=== PATIENT | male | born 1965 | race Caucasian/White ===

== ENCOUNTER 2019-02-26 23:26 | Inpatient (IN) ==
[2019-02-26] MEDS ORDERED: Ipratropium/Albuterol Neb 3 ML IH ONE (23:35)
[2019-02-26] MEDS ORDERED: 0.9 % Sodium Chloride 1,000 ML IVC SCH (23:45)
[2019-02-27 00:13] LABS: Basophils % 0.4 %; Eosinophils # 0.1 K/mcL (0.0-0.6); Eosinophils % 0.8 %; Hematocrit 50.1 % (37.5-50.1); Hemoglobin 17.7 g/dL (12.9-16.9); Immature Granulocytes % 0.4 % (0-4); Lymphocytes # 2.9 K/mcL (0.6-4.6); Lymphocytes % 26.2 %; Mean Corpuscular HGB Conc 35.3 g/dL (31.6-35.5); Mean Corpuscular Hemoglobin 32.8 pg (28.0-33.3); Mean Corpuscular Volume 92.8 fL (83.0-100.0); Mean Platelet Volume 9.6 fL (9.4-12.4); Monocytes # 0.9 K/mcL (0.0-1.3); Monocytes % 7.7 %; Neutrophils # 7.1 K/mcL (1.6-8.9); Platelet Count 150 K/mcL (140-400); Segmented Neutrophils % 64.5 %; White Blood Count 11.1 K/mcL (4.3-11.1)
[2019-02-27 00:19] LABS: INR 1.1; Prothrombin Time 12.7 Seconds (9.4-12.1)
[2019-02-27] MEDS ORDERED: Furosemide 40 MG/4 ML VIAL IVP ONE (00:20)
[2019-02-27 00:22] LABS: Activated Partial Thrombo Time 32.8 Seconds (26.0-36.0)
[2019-02-27 00:41] LABS: Troponin I 0.03 ng/mL (< 0.04)
[2019-02-27 00:42] LABS: Alanine Aminotransferase 23 Units/L (7-52); Albumin/Globulin Ratio 1.3 (1.1-2.2); Alkaline Phosphatase 84 Units/L (34-104); Aspartate Amino Transferase 28 Units/L (13-39); BUN/Creatinine Ratio 20 (6-26); Bilirubin,Total 0.4 mg/dL (0.3-1.0); Blood Urea Nitrogen 13 mg/dL (6-20); Calcium 9.1 mg/dL (8.6-10.3); Carbon Dioxide 25 mEq/L (23-29); Chloride 96 mEq/L (98-107); Globulin 3.2 g/dL (2.4-3.5); Glucose 217 mg/dL (70-105); Osmolality,Calculated 279 (280-300); Potassium 4.7 mEq/L (3.5-5.1); Sodium 131 mEq/L (136-145); Total Protein 7.2 g/dL (6.4-8.9); eGFR For African Americans > 60 (> 60); eGFR For Non-African Americans > 60 (> 60)
[2019-02-27] MEDS ORDERED: Ondansetron 4 MG/2 ML VIAL IVP PRN (02:11)
[2019-02-27] MEDS ORDERED: Acetaminophen 325 MG TABLET PO PRN (02:11)
[2019-02-27] MEDS ORDERED: Ipratropium/Albuterol Neb 3 ML IH PRN (02:12)
[2019-02-27] MEDS: *HR* Heparin 5,000 UNIT/ML VIAL SQ SCH ×2 (05:18→19:28)
[2019-02-27 05:35] LABS: VBG HCO3 28 mEq/L (21-27); VBG PCO2 39 mmHg (41-51); VBG PH 7.46 pH Units (7.32-7.42); VBG PO2 203 mmHg (25-50)
[2019-02-27 05:52] LABS: BUN/Creatinine Ratio 19 (6-26); Blood Urea Nitrogen 13 mg/dL (6-20); Calcium 8.9 mg/dL (8.6-10.3); Carbon Dioxide 29 mEq/L (23-29); Chloride 96 mEq/L (98-107); Chol/HDL Ratio 5.3 (0-4.9); Cholesterol 219 mg/dL (< 200); Glucose 251 mg/dL (70-105); HDL Cholesterol 41 mg/dL (40-59); LDL Cholesterol,Calculated 160 mg/dL (0-99); Osmolality,Calculated 289 (280-300); Potassium 3.9 mEq/L (3.5-5.1); Sodium 135 mEq/L (136-145); Triglycerides 91 mg/dL (< 150); eGFR For African Americans > 60 (> 60); eGFR For Non-African Americans > 60 (> 60)
[2019-02-27 06:05] LABS: Thyroid Stimulating Hormone 3.003 mcIU/mL (0.340-5.600)
[2019-02-27 06:38] LABS: Bilirubin,Urine Negative (Negative); Blood,Urine Negative (Negative); Clarity,Urine Clear (Clear); Color,Urine Yellow (Yellow); Glucose,Urine (UA) Normal (Normal); Ketones,Urine Negative (Negative); Leukocyte Esterase,Urine Negative (Negative); Nitrite,Urine Negative (Negative); Protein,Urine 100 mg/dL (Neg-Trace); Specific Gravity,Urine 1.016 (1.010-1.025); Urobilinogen,Urine Normal (Normal)
[2019-02-27 07:04] LABS: Estimated Average Glucose 260 mg/dl
[2019-02-27 07:47] LABS: Amphetamine Screen,Urine Negative ng/mL (Cutoff=1000); Barbiturate Screen,Urine Negative ng/mL (Cutoff=200); Benzodiazepines Screen,Urine Negative ng/mL (Cutoff=200); Cannabinoid Screen,Urine Negative ng/mL (Cutoff = 50); Cocaine Screen,Urine Negative ng/mL (Cutoff= 300); Opiate Screen,Urine Negative ng/mL (Cutoff=300); Phencyclidine Screen,Urine Negative ng/mL (Cutoff=25)
[2019-02-27] MEDS ORDERED: D5% in Water 1,000 ML IVC PRN (08:14)
[2019-02-27] MEDS ORDERED: Dextrose Gel 15 GM/37.5 ML TUBE PO PRN ×2 (08:14)
[2019-02-27] MEDS ORDERED: *HR* Dextrose 50 % in Water (Syg) 50 ML SYRINGE IVP PRN (08:14)
[2019-02-27] MEDS ORDERED: Artificial Tears SOLN 15 ML BOTTLE LEFT EYE SCH (09:00)
[2019-02-27] MEDS ORDERED: *HR* Metformin 500 MG TABLET PO SCH (09:00)
[2019-02-27] MEDS: Acyclovir 200 MG CAPSULE PO SCH ×2 (10:44→21:06)
[2019-02-27] MEDS: Aspirin Enteric Coated 81 MG Tablet PO SCH (10:44)
[2019-02-27] MEDS: OXcarbazepine 150 MG TABLET PO SCH ×4 (10:45→21:06)
[2019-02-27] MEDS: Ascorbic Acid 500 MG TABLET PO SCH (10:45)
[2019-02-27] MEDS: Furosemide 40 MG/4 ML VIAL IVP SCH ×2 (10:45→21:07)
[2019-02-27] MEDS: levETIRAcetam 250 MG TABLET PO SCH ×2 (10:46→21:06)
[2019-02-27] MEDS: Cyanocobalamin (B-12) 1,000 MCG TABLET PO SCH (10:47)
[2019-02-27] MEDS: Erythromycin OPTH Oint LEFT EYE SCH ×4 (11:08→22:06)
[2019-02-27] MEDS: Insulin LISPRO 300 UNITS/3 ML VIAL SQ SCH ×3 (13:01→21:09)
[2019-02-27] MEDS: VISINE TEARS DROPS 15 ML 1 DROP BOTTLE LEFT EYE SCH ×3 (13:03→22:06)
[2019-02-27] MEDS ORDERED: Perflutren Lipid Microsphere 1.3 ML in 0.9 % Sodium Chloride 8.7 ML IVP ONE (20:04)
[2019-02-27] MEDS ORDERED: Perflutren Lipid Microsphere 2 ML VIAL ONE (20:06)
[2019-02-27] MEDS: Insulin DETEMIR 100 UNIT/ML X5UNITS SQ SCH (21:05)
[2019-02-27] MEDS: Pregabalin 50 MG CAPSULE PO SCH (21:07)
[2019-02-28 05:35] LABS: BUN/Creatinine Ratio 23 (6-26); Blood Urea Nitrogen 20 mg/dL (6-20); Carbon Dioxide 31 mEq/L (23-29); Chloride 97 mEq/L (98-107); Glucose 195 mg/dL (70-105); Osmolality,Calculated 292 (280-300); Potassium 3.6 mEq/L (3.5-5.1); Sodium 137 mEq/L (136-145); eGFR For African Americans > 60 (> 60); eGFR For Non-African Americans > 60 (> 60)
[2019-02-28] MEDS: *HR* Heparin 5,000 UNIT/ML VIAL SQ SCH ×2 (05:38→17:06)
[2019-02-28] MEDS: Ascorbic Acid 500 MG TABLET PO SCH (08:40)
[2019-02-28] MEDS: Aspirin Enteric Coated 81 MG Tablet PO SCH (08:41)
[2019-02-28] MEDS: OXcarbazepine 150 MG TABLET PO SCH ×4 (08:41→20:36)
[2019-02-28] MEDS: Cyanocobalamin (B-12) 1,000 MCG TABLET PO SCH (08:41)
[2019-02-28] MEDS: Acyclovir 200 MG CAPSULE PO SCH ×2 (08:41→20:36)
[2019-02-28] MEDS: levETIRAcetam 250 MG TABLET PO SCH ×2 (08:41→20:36)
[2019-02-28] MEDS: Erythromycin OPTH Oint LEFT EYE SCH ×4 (08:42→20:37)
[2019-02-28] MEDS: Furosemide 40 MG/4 ML VIAL IVP SCH (08:42)
[2019-02-28] MEDS: VISINE TEARS DROPS 15 ML 1 DROP BOTTLE LEFT EYE SCH ×4 (08:42→20:38)
[2019-02-28] MEDS: Insulin LISPRO 300 UNITS/3 ML VIAL SQ SCH ×4 (08:42→20:38)
[2019-02-28] MEDS: Furosemide 20 MG TABLET PO SCH (17:05)
[2019-02-28] MEDS: Pregabalin 50 MG CAPSULE PO SCH (20:37)
[2019-02-28] MEDS: Insulin DETEMIR 100 UNIT/ML X5UNITS SQ SCH (20:38)
[2019-03-01] MEDS: *HR* Heparin 5,000 UNIT/ML VIAL SQ SCH ×2 (05:28→18:07)
[2019-03-01 06:35] LABS: Hematocrit 45.2 % (37.5-50.1); Mean Corpuscular HGB Conc 34.1 g/dL (31.6-35.5); Mean Corpuscular Hemoglobin 32.2 pg (28.0-33.3); Mean Corpuscular Volume 94.4 fL (83.0-100.0); Platelet Count 150 K/mcL (140-400); Red Blood Count 4.79 M/mcL (4.19-5.50); Red Cell Distribution Width 11.9 % (11.5-14.5); White Blood Count 10.9 K/mcL (4.3-11.1)
[2019-03-01 06:40] LABS: Hemoglobin 15.4 g/dL (12.9-16.9)
[2019-03-01 06:54] LABS: BUN/Creatinine Ratio 28 (6-26); Blood Urea Nitrogen 25 mg/dL (6-20); Calcium 8.9 mg/dL (8.6-10.3); Carbon Dioxide 33 mEq/L (23-29); Chloride 97 mEq/L (98-107); Glucose 170 mg/dL (70-105); Osmolality,Calculated 296 (280-300); Potassium 3.7 mEq/L (3.5-5.1); Sodium 139 mEq/L (136-145); eGFR For African Americans > 60 (> 60); eGFR For Non-African Americans > 60 (> 60)
[2019-03-01] MEDS: levETIRAcetam 250 MG TABLET PO SCH ×2 (07:58→20:26)
[2019-03-01] MEDS: Acyclovir 200 MG CAPSULE PO SCH ×2 (07:59→20:28)
[2019-03-01] MEDS: OXcarbazepine 150 MG TABLET PO SCH ×4 (07:59→20:27)
[2019-03-01] MEDS: Furosemide 20 MG TABLET PO SCH (07:59)
[2019-03-01] MEDS: Erythromycin OPTH Oint LEFT EYE SCH ×4 (07:59→20:28)
[2019-03-01] MEDS: Aspirin Enteric Coated 81 MG Tablet PO SCH (07:59)
[2019-03-01] MEDS: Cyanocobalamin (B-12) 1,000 MCG TABLET PO SCH (07:59)
[2019-03-01] MEDS: Ascorbic Acid 500 MG TABLET PO SCH (07:59)
[2019-03-01] MEDS: VISINE TEARS DROPS 15 ML 1 DROP BOTTLE LEFT EYE SCH ×4 (08:00→20:28)
[2019-03-01] MEDS: Insulin LISPRO 300 UNITS/3 ML VIAL SQ SCH ×4 (08:00→20:27)
[2019-03-01] MEDS ORDERED: Furosemide 20 MG/2 ML VIAL IVP ONE (11:30)
[2019-03-01] MEDS ORDERED: 0.9 % Sodium Chloride 1,000 ML ONE ×2 (15:59→16:08)
[2019-03-01] MEDS ORDERED: Heparin 1,000 UNITS/500 mL 500 ML ONE (15:59)
[2019-03-01] MEDS ORDERED: *HR* Heparin 10,000 UNIT/10 ML VIAL ONE (15:59)
[2019-03-01] MEDS ORDERED: Nitroglycerin 1,000 MCG/10 ML VIAL IV ONE (16:00)
[2019-03-01] MEDS ORDERED: ISOVUE-370 200 ML INFUS..BTL ONE (16:00)
[2019-03-01] MEDS ORDERED: *HR* Midazolam HCl 2 MG/2 ML VIAL ONE (16:22)
[2019-03-01] MEDS ORDERED: *HR* FentaNYL (PF) 100 MCG/2 ML VIAL ONE (16:22)
[2019-03-01] MEDS: Furosemide 40 MG/4 ML VIAL IVP SCH (18:21)
[2019-03-01] MEDS: Pregabalin 50 MG CAPSULE PO SCH (20:27)
[2019-03-01] MEDS: Insulin DETEMIR 100 UNIT/ML X5UNITS SQ SCH (20:27)
[2019-03-02] MEDS: *HR* Heparin 5,000 UNIT/ML VIAL SQ SCH (05:31)
[2019-03-02] MEDS: Acyclovir 200 MG CAPSULE PO SCH (07:46)
[2019-03-02] MEDS: OXcarbazepine 150 MG TABLET PO SCH (07:47)
[2019-03-02] MEDS: Ascorbic Acid 500 MG TABLET PO SCH (07:47)
[2019-03-02] MEDS: Insulin LISPRO 300 UNITS/3 ML VIAL SQ SCH ×2 (07:47→11:38)
[2019-03-02] MEDS: levETIRAcetam 250 MG TABLET PO SCH (07:47)
[2019-03-02] MEDS: Aspirin Enteric Coated 81 MG Tablet PO SCH (07:47)
[2019-03-02] MEDS: Cyanocobalamin (B-12) 1,000 MCG TABLET PO SCH (07:47)
[2019-03-02] MEDS: Furosemide 40 MG/4 ML VIAL IVP SCH (07:47)
[2019-03-02] MEDS: VISINE TEARS DROPS 15 ML 1 DROP BOTTLE LEFT EYE SCH (07:48)
[2019-03-02] MEDS: Erythromycin OPTH Oint LEFT EYE SCH (07:48)
[2019-03-02] MEDS ORDERED: Metoprolol XL (24 HR) Succ 50 MG TAB.ER.24H PO SCH (09:00)
[2019-03-02 09:29] LABS: BUN/Creatinine Ratio 29 (6-26); Blood Urea Nitrogen 22 mg/dL (6-20); Calcium 9.3 mg/dL (8.6-10.3); Carbon Dioxide 29 mEq/L (23-29); Chloride 101 mEq/L (98-107); Glucose 156 mg/dL (70-105); Osmolality,Calculated 293 (280-300); Potassium 3.6 mEq/L (3.5-5.1); Sodium 138 mEq/L (136-145); eGFR For African Americans > 60 (> 60); eGFR For Non-African Americans > 60 (> 60)
[2019-03-02 11:21] VITALS: BP 138/95
== END 2019-03-02 14:41 | disposition home or self-care (01) | DRG 286 ==
LOC: 3BNU 23:26 → EMEROOARM 23:26 → 3BNU 02-27 02:10
PROVIDERS: ADMIT Internal Medicine; ATTEND Internal Medicine